=== PATIENT | female | born 1985 | race Caucasian/White ===

== ENCOUNTER 2017-04-19 17:28 | Emergency (ER) | payer OTHER ==
[2017-04-19 18:46] LABS: Hematocrit 26 % (35-47); Hemoglobin 7.2 g/dl (12.0-16.0); Mean Corpuscular HGB Conc 28 g/dl (31-36); Mean Corpuscular Hemoglobin 16 pg (27-31); Mean Corpuscular Volume 58 fL (80-97); Mean Platelet Volume 9 um3 (7.4-10.4); Red Blood Count 4.42 10^6/ul (4.0-5.4); Red Cell Distribution Width 24 % (10.5-15); White Blood Count 5.7 10^3/ul (3.5-10.8)
[2017-04-19 18:58] LABS: Comments Flag Yes
[2017-04-19 19:06] LABS: Anion Gap 5 mmol/L (2-11); BUN/Creatinine Ratio 8.6 (8-20); Blood Urea Nitrogen 6 mg/dL (6-24); CO2 Carbon Dioxide 27 mmol/L (22-32); Calcium 9.5 mg/dL (8.6-10.3); Chloride 104 mmol/L (101-111); EGFR African American 123.2 (>60); EGFR Non-African American 95.8 (>60); Glucose 95 mg/dL (70-100); Potassium 3.9 mmol/L (3.5-5.0); Sodium 136 mmol/L (133-145)
[2017-04-19 19:16] LABS: Iron < 15 ug/dL (50-212)
[2017-04-19 19:36] LABS: Ferritin < 10.0 ng/mL (11-307)
--- NOTE | 2017-04-19 20:21 | ED ---
Dizziness - HPI Summary HPI Summary: 32 y/o female with h/o blood transfusion for anemia in early , unknown source, with no complaints/ anemia. Recently after field study in [place] with increased stress, poor eating habits, no supplementation (pt vegetarian diet, + fish, + eggs) noted dizziness worse with standing, rising from sitting, told she was pale, "looked bad". Was seen at [place] sunday- stool neg for blood, referral to hemonc at [facility]- had appt sunday which was cancelled, rescheduled for end april, patient came to ER as symptoms continue and does not feel can make it to end april appt. started iron supplementation sunday - History Of Current Complaint Chief Complaint: EDGeneral Stated Complaint: DIZZY/WEAKNESS Time Seen by Provider: 04/19/17 19:26 Hx Obtained From: Patient Onset/Duration: Still Present Timing: Constant Severity Initially: Moderate Severity Currently: Moderate Character: Lightheaded, Weak, Dizzy - worse with standing, rising Aggravating Factor(s): Position Change, Supine To Erect Alleviating Factor(s): Rest, Lying Down Associated Signs And Symptoms: Positive: SOB - h/o asthma, unsure related? - Allergies/Home Medications Allergies/Adverse Reactions: Allergies Allergy/AdvReac Type Severity Reaction Status Date / Time Environmental Allergies Allergy Congestion Uncoded 05/21/14 12:26 PMH/Surg Hx/FS Hx/Imm Hx Previously Healthy: Yes - h/o anemia in 20s Endocrine/Hematology History: Denies: Hx Diabetes, Hx Thyroid Disease Cardiovascular History: Denies: Hx Hypertension Respiratory History: Reports: Hx Asthma - and allergies Denies: Hx Chronic Obstructive Pulmonary Disease (COPD) GI History: Denies: Hx Ulcer Infectious Disease History: Denies: Hx Clostridium Difficile, Hx Hepatitis, Hx Human Immunodeficiency Virus (HIV), Hx of Known/Suspected MRSA, History Other Infectious Disease, Traveled Outside the [place] in Last 30 Days - Social History Alcohol Use: Occasionally Substance Use Type: Reports: None Smoking Status (MU): Never Smoked Tobacco Type: Cigarettes Amount Used/How Often: once a week Have You Smoked in the Last Year: Yes Review of Systems Positive: Fatigue Eyes: Negative ENT: Negative Cardiovascular: Negative Positive: Shortness Of Breath Gastrointestinal: Negative Genitourinary: Negative Musculoskeletal: Negative Skin: Negative Positive: Weakness Psychological: Normal All Other Systems Reviewed And Are Negative: Yes Physical Exam Triage Information Reviewed: Yes Vital Signs On Initial Exam: Initial Vitals Temp Pulse Resp BP Pulse Ox 97.8 F 54 20 122/75 99 04/19/17 17:29 04/19/17 17:29 04/19/17 17:29 04/19/17 17:29 04/19/17 17:29 Vital Signs Reviewed: Yes Appearance: Positive: Well-Appearing, No Pain Distress, Well-Nourished Skin: Positive: Warm, Other - skin pale, conjunctiva pale Eyes: Positive: EOMI Neck: Positive: Supple, Nontender Respiratory/Lung Sounds: Positive: Clear to Auscultation, Breath Sounds Present Cardiovascular: Positive: Normal, RRR, Pulses are Symmetrical in both Upper and Lower Extremities Abdomen Description: Positive: Nontender, No Organomegaly Musculoskeletal: Positive: Normal, Strength/ROM Intact Neurological: Positive: Normal, Sensory/Motor Intact, Alert, Oriented to Person Place, Time, Normal Gait, Facial Symmetry, Speech Normal Psychiatric: Positive: Normal AVPU Assessment: Alert Diagnostics - Vital Signs Vital Signs Temp Pulse Resp BP Pulse Ox 04/19/17 19:00 97.3 F 66 20 119/68 100 04/19/17 17:29 97.8 F 54 20 122/75 99 - Laboratory Lab Results: Lab Results 04/19/17 04/19/17 04/19/17 Range/Units 18:37 18:37 18:37 WBC 5.7 (3.5-10.8) 10^3/ul RBC 4.42 (4.0-5.4) 10^6/ul Hgb 7.2 L (12.0-16.0) g/dl Hct 26 L (35-47) % MCV 58 L (80-97) fL MCH 16 L (27-31) pg MCHC 28 L (31-36) g/dl RDW 24 H (10.5-15) % Plt Count 356 (150-450) 10^3/ul MPV 9 (7.4-10.4) um3 Hem Pathologist Commnt Pending Sodium 136 (133-145) mmol/L Potassium 3.9 (3.5-5.0) mmol/L Chloride 104 (101-111) mmol/L Carbon Dioxide 27 (22-32) mmol/L Anion Gap 5 (2-11) mmol/L BUN 6 (6-24) mg/dL Creatinine 0.70 (0.51-0.95) mg/dL Est GFR ( Amer) 123.2 (>60) Est GFR (Non-Af Amer) 95.8 (>60) BUN/Creatinine Ratio 8.6 (8-20) Glucose 95 (70-100) mg/dL Calcium 9.5 (8.6-10.3) mg/dL Iron < 15 L (50-212) ug/dL Ferritin < 10.0 L (11-307) ng/mL Blood Type A Positive Antibody Screen Negative Result Diagrams: 04/19/17 18:37 04/19/17 18:37 Lab Statement: Any lab studies that have been ordered have been reviewed, and results considered in the medical decision making process. Dizzy Course/Dx - Course Course Of Treatment: Dr. Mclean called, discussed care, did not recommend transfusion, will follow up with patient in clinic tomorrow. Patient told, agreeed with plan. - Diagnoses Differential Diagnosis/HQI/PQRI: Anxiety, Coronary Artery Disease, Dysrhythmia, GI Bleed, Hypovolemia Provider Diagnoses: Anemia Discharge - Discharge Plan Condition: Stable Disposition: HOME Patient Education Materials: Iron Rich Diet (ED), Anemia (ED) Referrals: Ebony Rao MD [Primary Care Provider] - Additional Instructions: - Discussed with DR. Mclean- Please go to his office tomorrow morning at 8AM for follow up - Use caution with standing
[2017-04-19 21:09] LABS: Vitamin B12 393 pg/mL (180-914)
[2017-04-20 04:20] VITALS: BP 112/71
== END 2017-04-19 21:17 | disposition home or self-care (01) ==
LOC: ED 17:28
DX: D64.9 Anemia, unspecified (principal); R42 Dizziness and giddiness; R53.1 Weakness; R06.02 Shortness of breath; R53.83 Other fatigue
CPT/HCPCS: 36415; 80048; 82607; 82728; 83540; 85027; 85060; 86850; 86900; 86901; 99282

== ENCOUNTER 2018-04-03 11:11 | Day surgery (SDC) | payer OTHER ==
[~2018-04-03 11:11] MED LIST: Buffered Lidocaine 0.9% SYRIN* 5 ML/SYR SYRINGE INTRADERM ONE; Dexamethasone TAB* 4 MG PO ONE; DiMENhydriNATE IV* 50 MG/ML VIAL IV PUSH PRN; Famotidine IV* 10 MG/ML 2 ML (20 mg) IV ONE; Morphine INJ* 2 MG/ML 1 ML CARPUJECT IV PRN; Naloxone* 0.4 MG/ML 1 ML VIAL IV PRN; Ondansetron INJ* 2 MG/ML VIAL ONE; PROCHLORPERAZINE INJ 5 MG/ML 2 ML VIAL IV PRN; Scopolamine 1.5 mg* PATCH TRANSDERM PRN; fentaNYL* 50 MCG/ML 2 ML VIAL (100 MCG VIAL) IV PRN; oxyCODONE/Acetamin 5/325 MG* TAB PO PRN
[2018-04-03] MEDS ORDERED: Famotidine IV* 10 MG/ML 2 ML (20 mg) ONE (11:52)
[2018-04-03] MEDS ORDERED: Buffered Lidocaine 0.9% SYRIN* 5 ML/SYR SYRINGE ONE (11:53)
[2018-04-03] MEDS ORDERED: Dexamethasone TAB* 4 MG ONE (11:53)
[2018-04-03] MEDS ORDERED: Ondansetron ODT TAB* 4 MG ONE (11:53)
[2018-04-03] MEDS ORDERED: fentaNYL* 50 MCG/ML 2 ML VIAL (100 MCG VIAL) ONE (15:28)
[2018-04-03] MEDS ORDERED: Midazolam* 1 MG/ML 5 ML VIAL (5 MG) ONE (15:28)
[2018-04-03] MEDS ORDERED: Lidocaine 4% TOPICAL* 50 ML TOP.SOLN ONE (15:37)
[2018-04-03] MEDS ORDERED: Oxymetazoline 0.05% NASAL SPR* 15 ML BTL ONE (15:37)
[2018-04-03] MEDS ORDERED: Lidocain 1% EPI 1:100,000 * 30 ML MDV ONE ×2 (15:37→16:20)
[2018-04-03] MEDS ORDERED: hydrALAZINE IV* 20 MG/ML VIAL IV SLOW PU ONE (15:39)
[2018-04-03] MEDS ORDERED: PROCHLORPERAZINE INJ 5 MG/ML 2 ML VIAL ONE (15:59)
[2018-04-03] MEDS ORDERED: Propofol* 10 MG/ML 20 ML BTL IV PUSH ONE (15:59)
[2018-04-03] MEDS ORDERED: Lidocaine 2% PF * 5 ML VIAL ONE (15:59)
[2018-04-03] MEDS ORDERED: Triamcinolone Acetonide* 40 MG/ML 1 ML VIAL ONE (16:58)
[2018-04-03] MEDS ORDERED: oxyCODONE/Acetamin 5/325 MG* TAB ONE (18:04)
[2018-04-03 18:52] VITALS: BP 136/94
--- NOTE | 2018-04-04 05:36 | OP ---
DATE OF OPERATION: 04/03/18 - SDS DATE OF : 81 SURGEON: Talat Limon MD PRE-OP DIAGNOSES: Chronic pansinusitis, maxillary, ethmoidal, sphenoidal, and nasal polyposis. POST-OP DIAGNOSES: Chronic pansinusitis, maxillary, ethmoidal, sphenoidal, and nasal polyposis. OPERATIVE PROCEDURE: Bilateral endoscopic sinus surgery with maxillary antrostomy with debridement of polyps, anterior and posterior ethmoidectomy, and sphenoidotomies under general laryngeal mask anesthesia. I used the image- guided system as well. COMPLICATIONS: None. DISPOSITION: Good. SPECIMENS: Left and right sinus contents and polyps. DESCRIPTION OF PROCEDURE: The patient was taken to the operating room, placed in the supine position on the operating room table, maintained with laryngeal mask airway anesthesia. She was turned and draped for the surgery and the nose was packed with cottonoids impregnated with oxymetazoline and 4% lidocaine. She was registered to the image-guided system and those instruments were used to verify placement of the instruments and surgery to confirm sinus location. The surgery was done the same bilaterally, systematically, injecting the polyps , middle turbinates, lateral arellano, as I got further back the ethmoid bulla. Deriding the polyps with the Jenniferley debrider using a sickle knife to take down the anterior aspect of the uncinate process, grasped and removing it, widening the ostium with the backbiters and the debrider, pulling polyps out at the maxillary sinuses, entering the anterior ethmoid bulla into the posterior ethmoid and then in through the ostium of the sphenoid sinus. I debriding polyps and open up the sinuses. I did not enter the frontals, but I pulled polyps out of the nasofrontal duct. MeroGel was placed bilaterally. The patient tolerated this well, no complications, transferred to the recovery room in stable condition. [id number]/[facility] #: [id number] KAY
[2018-04-06] MEDS ORDERED: Scopolamine PATCH Remove* 1 NOTE MISC PATCH OFF ONE (05:52)
== END 2018-04-03 18:59 | disposition home or self-care (01) ==
LOC: OR 11:11
PROVIDERS: ATTEND Otolaryngology
DX: J32.4 Chronic pansinusitis (principal); J45.40 Moderate persistent asthma, uncomplicated
CPT/HCPCS: 81025; 88305; A9270-GY; J0780; J2250; J2704; J3010; J3301; J8540

== ENCOUNTER 2018-05-07 22:50 | Emergency (ER) | payer OTHER ==
--- OUTSIDE RECORDS SUMMARY | 2018-05-07 23:26 | XMS REPORT ---
:1985 External Reference #:[id number] Author Organization [facility] Address [address] [place] [address] Phone [phone] Care Team Providers Name Role Phone Ebony Madden M.D. Primary Care Physician Unavailable Payers Type Date Identification Numbers Payment Provider Subscriber Commercial Effective: Policy Number: [id number] [facility] Anita Caldwell 2015 Group Number: [id number] [address] Group Name: [place] [address] PayID: [id number] [place] [address] Expires: 2015 Policy Number: [facility] Anita Caldwell [id number] Healthcare Group Number: [id number] [address] PayID: [id number] [place] [address] Problems Date Description Provider Status Onset: 04/08/2018 Uncomplicated moderate persistent TERESA Blancas-C Active asthma Onset: 09/08/2016 Uncomplicated moderate persistent Pepe Calderon M.D. Active asthma Onset: 09/08/2016 Body mass index (BMI) 21.0-21.9, Pepe Calderon M.D. Active adult Onset: 09/08/2016 Allergic rhinitis due to animals Pepe Calderon M.D. Active Onset: 09/08/2016 Immunization Pepe Calderon M.D. Active Onset: 08/19/2014 Acute maxillary sinusitis BERTHA Batista Active Onset: 12/29/2013 Mucosanguinous chronic otitis media Pepe Calderon M.D. Active Onset: 08/26/2012 Extrinsic asthma without status Pepe Calderon M.D. Active asthmaticus Onset: 08/26/2012 Allergic rhinitis Pepe Calderon M.D. Active Family History Date Family Member(s) Problem(s) Comments General Asthma General Hypertension pat GF andGM General Heart Disease pat GM First Brother Asthma Social History Type Date Description Comments Marital Status Legal Status: Lives With Spouse Home Environment Negative For 20+Year Old Home, 2 Years In Current Home Home Environment Down Comforter Home Environment Mattress is not encased in an allergy proof case Home Environment Regular Mattress Home Environment Pillows are not encased in an allergy proof case Home Environment Does not use a dehumidifier Home Environment Uses baseboard heating Home Environment Uses natural gas heating Home Environment [facility] Home Environment Water Source: 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 Home Environment Does not have an air conditioner Home Environment Stairs are not present Home Environment There is no basement Home Environment Mattress is 5 years old Home Environment Pillows are polyester Home Environment There are no draperies in the home Home Environment The home is not alfredo Home Environment The floors are tile Smoke-Free Home is smoke-free Smoke-Free Work is smoke-free Pets None Occupation [employer] ETOH Use Currently consumes alcohol 5 drinks per week Smoking Patient has never smoked Recreational Drug Use Former Drug User Allergies, Adverse Reactions, Alerts Date Description Reaction Status Severity Comments 12/14/2011 NKDA active Medications Medication Date Status Form Strength Qnty SIG Indications Ordering Provider Mometasone 03/16 Active Suspension 50mcg/Act 17gm Use 1-2 Rabia Furoate /2015 Sprays In [place]uss[place], Each WELT SLASHER-C Nostril Daily Advair HFA 05/21 Active Aerosol 115-21mcg 1unit take 2 J45.40 Pepe /2014 /Act s puffs Calderon, twice M.D. daily, use the chamber. Levocetirizine 05/21 Active Tablets 5mg 30tab Take 1 J45.40 Pepe Dihydrochloride /2014 s Tablet By Calderon, Mouth AT M.D. Bedtime Montelukast 09/22 Active Tablets 10mg 90tab Take 1 Rabia Sodium /2012 s Tablet By Dussing, Mouth WELT SLASHER-C Every Evening Ventolin HFA Active Aerosol 108(90Bas 8gm 2 puffs Pepe /0000 e) every 4 Calderon, mcg/Act hours as M.D. needed for shortness of breath, cough, wheezing and/or 15 min. prior to exercise Visine-A Active Solution 0.025-0.3 one drop Unknown /0000 % each eye as needed 4 x day. Medications Administered in Office Medication Date Status Form Strength Qnty SIG Indications Ordering Provider Injection 05/28/20 Administered Injection Allergy 15 Injection Injection 05/21/20 Administered Injection Allergy 15 Injection Injection 05/14/20 Administered Injection Allergy 15 Injection Injection 05/07/20 Administered Injection Allergy 15 Injection Injection 03/24/20 Administered Injection Allergy 15 Injection Injection 03/19/20 Administered Injection Allergy 15 Injection Injection 03/12/20 Administered Injection Allergy 15 Injection Injection 02/18/20 Administered Injection Allergy 15 Injection Injection 02/06/20 Administered Injection Allergy 15 Injection Injection 01/30/20 Administered Injection Allergy 15 Injection Injection 01/02/20 Administered Injection Allergy 15 Injection Injection 12/24/19 Administered Injection Allergy 15 Injection Injection 12/17/19 Administered Injection Allergy 15 Injection Injection 12/10/19 Administered Injection Allergy 15 Injection Injection 12/02/19 Administered Injection Allergy 15 Injection Injection 10/16/19 Administered Injection Allergy 15 Injection Injection 09/18/20 Administered Injection Allergy 14 Injection Injection 08/05/20 Administered Injection Allergy 14 Injection Injection 06/26/20 Administered Injection Milton 14 Rick, M.D. Injection 06/03/20 Administered Injection Allergy 14 Injection Injection 04/22/20 Administered Injection Allergy 14 Injection Injection 04/06/20 Administered Injection Allergy 14 Injection Injection 03/30/20 Administered Injection Allergy 14 Injection Injection 03/16/20 Administered Injection Allergy 14 Injection Injection 02/28/20 Administered Injection Allergy 14 Injection Injection 02/14/20 Administered Injection Allergy 14 Injection Injection 01/20/20 Administered Injection Allergy 14 Injection Injection 01/08/20 Administered Injection Allergy 14 Injection Injection 12/11/19 Administered Injection Allergy 14 Injection Injection 11/28/19 Administered Injection Allergy 14 Injection Injection 11/21/19 Administered Injection Allergy 14 Injection Injection 09/22/20 Administered Injection Allergy 13 Injection Injection 09/08/20 Administered Injection Allergy 13 Injection Injection 08/01/20 Administered Injection Allergy 13 Injection Injection 07/18/20 Administered Injection Allergy 13 Injection Injection 07/07/20 Administered Injection Allergy 13 Injection Injection 06/20/20 Administered Injection Allergy 13 Injection Injection 05/19/20 Administered Injection Allergy 13 Injection Injection 05/02/20 Administered Injection Allergy 13 Injection Injection 04/18/20 Administered Injection Pepe Calderon, 13 M.D. Injection 04/18/20 Administered Injection Allergy 13 Injection Injection 03/28/20 Administered Injection Allergy 13 Injection Injection 03/17/20 Administered Injection Allergy 13 Injection Injection 03/07/20 Administered Injection Allergy 13 Injection Injection 02/22/20 Administered Injection Allergy 13 Injection Injection 02/15/20 Administered Injection Allergy 13 Injection Injection 02/08/20 Administered Injection Allergy 13 Injection Injection 02/01/20 Administered Injection Allergy 13 Injection Injection 01/25/20 Administered Injection Allergy 13 Injection Injection 01/18/20 Administered Injection Allergy 13 Injection Injection 12/21/19 Administered Injection Pepe Calderon, 13 M.D. Injection 12/14/19 Administered Injection Pepe Calderon, 13 M.D. Injection 12/07/19 Administered Injection Pepe Calderon, 13 M.D. Injection 11/22/19 Administered Injection Pepe Calderon, 13 M.D. Injection 11/15/19 Administered Injection Pepe Calderon, 13 M.D. Injection 11/08/19 Administered Injection Pepe Calderon, 13 M.D. Injection 11/01/19 Administered Injection Pepe Calderon, 13 M.D. Injection 10/14/19 Administered Injection Pepe Calderon, 13 M.D. Injection 09/27/20 Administered Injection Pepe Calderon, 12 M.D. Injection 09/23/20 Administered Injection Pepe Calderon, 12 M.D. Injection 09/13/20 Administered Injection Pepe Calderon, 12 M.D. Injection 09/11/20 Administered Injection Pepe Calderon, 12 M.D. Injection 09/04/20 Administered Injection Pepe Calderon, 12 M.D. Injection 08/23/20 Administered Injection Pepe Calderon, 12 M.D. Injection 08/16/20 Administered Injection Pepe Calderon, 12 M.D. Injection 08/09/20 Administered Injection Pepe Calderon, 12 M.D. Injection 08/02/20 Administered Injection Pepe Calderon, 12 M.D. Injection 07/26/20 Administered Injection Pepe Calderon, 12 M.D. Injection 07/19/20 Administered Injection Pepe Calderon, 12 M.D. Injection 07/12/20 Administered Injection Pepe Calderon, 12 M.D. Injection 07/05/20 Administered Injection Pepe Calderon, 12 M.D. Injection 06/28/20 Administered Injection Pepe Calderon, 12 M.D. Injection 06/21/20 Administered Injection Pepe Calderon, 12 M.D. Injection 06/14/20 Administered Injection Pepe Calderon, 12 M.D. Immunizations CPT Code Status Date Vaccine Lot # [id number] Given 07/08/2014 Influenza Vaccine 42196 Given Unknown Influenza Vaccine Vital Signs Date Vital Result Comment 04/08/2018 Height 69 inches 5'9" Weight 132.00 lb Weight in kg's 59.875 Respiratory Rate 16 /min Heart Rate 63 /min O2 % BldC Oximetry 98 % BP Systolic 108 mmHg BP Diastolic 64 mmHg Asthma Control Test 24 BMI (Body Mass Index) 19.5 kg/m2 09/08/2016 Height 69 inches 5'9" Weight 147.00 lb Weight in kg's 66.679 Respiratory Rate 16 /min Heart Rate 68 /min O2 % BldC Oximetry 99 % BP Systolic 115 mmHg BP Diastolic 64 mmHg Asthma Control Test 19 BMI (Body Mass Index) 21.7 kg/m2 05/17/2016 Height 69 inches 5'9" Weight 140.00 lb Weight in kg's 63.504 Respiratory Rate 16 /min Heart Rate 76 /min O2 % BldC Oximetry 98 % BP Systolic 110 mmHg BP Diastolic 62 mmHg Asthma Control Test 24 BMI (Body Mass Index) 20.7 kg/m2 03/16/2016 Height 69 inches 5'9" Weight 145.00 lb Weight in kg's 65.772 Respiratory Rate 20 /min Heart Rate 75 /min O2 % BldC Oximetry 99 % BP Systolic 121 mmHg BP Diastolic 76 mmHg Asthma Control Test 9 BMI (Body Mass Index) 21.4 kg/m2 05/21/2015 Height 69 inches 5'9" Weight 135.00 lb Weight in kg's 61.236 Respiratory Rate 18 /min Heart Rate 76 /min O2 % BldC Oximetry 97 % BP Systolic 117 mmHg BP Diastolic 64 mmHg Asthma Control Test 24 BMI (Body Mass Index) 19.9 kg/m2 05/19/2015 Height 69 inches 5'9" Weight 135.00 lb Weight in kg's 61.236 Respiratory Rate 18 /min Heart Rate 62 /min Body Temperature 98.0 F O2 % BldC Oximetry 99 % BP Systolic 119 mmHg BP Diastolic 70 mmHg Asthma Control Test 24 BMI (Body Mass Index) 19.9 kg/m2 08/28/2014 Height 69 inches 5'9" Weight 135.00 lb Weight in kg's 61.236 Respiratory Rate 18 /min Heart Rate 78 /min O2 % BldC Oximetry 97 % BP Systolic 116 mmHg BP Diastolic 72 mmHg Asthma Control Test 21 BMI (Body Mass Index) 19.9 kg/m2 08/19/2014 Height 69 inches 5'9" Weight 135.00 lb Weight in kg's 61.236 Respiratory Rate 16 /min Heart Rate 66 /min O2 % BldC Oximetry 96 % BP Systolic 118 mmHg BP Diastolic 76 mmHg Asthma Control Test 15 BMI (Body Mass Index) 19.9 kg/m2 01/14/2014 Height 69 inches 5'9" Weight 136.00 lb Weight in kg's 61.690 Respiratory Rate 16 /min Heart Rate 79 /min Body Temperature 98.1 F O2 % BldC Oximetry 99 % BP Systolic 124 mmHg BP Diastolic 78 mmHg Asthma Control Test 24 BMI (Body Mass Index) 20.1 kg/m2 12/29/2013 Height 69 inches 5'9" Weight 135.00 lb Weight in kg's 61.236 Respiratory Rate 16 /min Heart Rate 71 /min Body Temperature 98.2 F O2 % BldC Oximetry 98 % BP Systolic 116 mmHg BP Diastolic 60 mmHg Asthma Control Test 22 BMI (Body Mass Index) 19.9 kg/m2 12/26/2013 Height 69 inches 5'9" Weight 135.00 lb Weight in kg's 61.236 Respiratory Rate 18 /min Heart Rate 74 /min Body Temperature 97.6 F O2 % BldC Oximetry 98 % BP Systolic 112 mmHg BP Diastolic 78 mmHg Asthma Control Test 22 BMI (Body Mass Index) 19.9 kg/m2 10/22/2013 Height 69 inches 5'9" Weight 130.00 lb patient verbalized weight Weight in kg's 58.968 Respiratory Rate 14 /min Heart Rate 70 /min O2 % BldC Oximetry 98 % BP Systolic 124 mmHg BP Diastolic 78 mmHg BMI (Body Mass Index) 19.2 kg/m2 09/22/2013 Height 69 inches 5'9" Weight 130.00 lb Weight in kg's 58.968 Respiratory Rate 16 /min Heart Rate 63 /min O2 % BldC Oximetry 97 % BMI (Body Mass Index) 19.2 kg/m2 05/23/2013 Height 68 inches 5'8" Weight 143.00 lb Weight in kg's 64.865 Respiratory Rate 16 /min Heart Rate 61 /min O2 % BldC Oximetry 99 % BP Systolic 110 mmHg BP Diastolic 70 mmHg BMI (Body Mass Index) 21.7 kg/m2 04/18/2013 Height 70 inches 5'10" Weight 144.00 lb Weight in kg's 65.318 Respiratory Rate 16 /min Heart Rate 69 /min O2 % BldC Oximetry 99 % BP Systolic 128 mmHg BP Diastolic 72 mmHg BMI (Body Mass Index) 20.7 kg/m2 04/04/2013 Height 70 inches 5'10" Weight 144.00 lb Weight in kg's 65.318 Respiratory Rate 16 /min Heart Rate 56 /min Body Temperature 98.3 F O2 % BldC Oximetry 99 % BP Systolic 122 mmHg BP Diastolic 80 mmHg BMI (Body Mass Index) 20.7 kg/m2 03/17/2013 Height 70 inches 5'10" Weight 145.00 lb Weight in kg's 65.772 Heart Rate 57 /min O2 % BldC Oximetry 94 % BP Systolic 104 mmHg BP Diastolic 74 mmHg BMI (Body Mass Index) 20.8 kg/m2 02/10/2013 Height 70 inches 5'10" Weight 142.00 lb Weight in kg's 64.411 Respiratory Rate 16 /min Heart Rate 53 /min BMI (Body Mass Index) 20.4 kg/m2 12/20/2012 Height 70 inches 5'10" Weight 157.00 lb Weight in kg's 71.215 Respiratory Rate 16 /min Heart Rate 58 /min O2 % BldC Oximetry 99 % BMI (Body Mass Index) 22.5 kg/m2 Results Description No Information Procedures Date CPT Code Description Status 09/08/2016 54137 Pre PFT Completed 05/19/2016 80786 Extract 1-10 Completed 05/17/2016 81148 Pre PFT Completed 03/16/2016 87305 Pre PFT Completed 05/28/2015 66051 Injection Completed 05/21/2015 07142 Extract 1-10 Completed 05/21/2015 55649 Injection Completed 05/21/2015 69218 Pre PFT Completed 05/14/2015 53776 Injection Completed 05/07/2015 60249 Injection Completed 03/24/2015 57388 Injection Completed 03/19/2015 15983 Injection Completed 03/12/2015 37531 Injection Completed 02/17/2015 24845 Injection Completed 02/05/2015 56828 Injection Completed 01/29/2015 55026 Injection Completed 01/01/2015 49871 Injection Completed 12/23/2014 37233 Extract 1-10 Completed 12/23/2014 96274 Injection Completed 12/16/2014 26679 Injection Completed 12/09/2014 14797 Injection Completed 12/02/2014 51904 Injection Completed 10/16/2014 48301 Injection Completed 09/18/2014 89563 Injection Completed 08/19/2014 97060 Pulmonary Function Test Completed 08/05/2014 77964 Injection Completed 06/26/2014 18563 Injection Completed 06/03/2014 54390 Injection Completed 04/22/2014 90731 Injection Completed 04/06/2014 89231 Injection Completed 03/30/2014 42768 Extract 1-10 Completed 03/30/2014 87910 Injection Completed 03/16/2014 00911 Injection Completed 02/27/2014 97687 Injection Completed 02/13/2014 28536 Injection Completed 01/19/2014 38455 Injection Completed 01/07/2014 80553 Injection Completed 12/10/2013 86108 Injection Completed 11/28/2013 92666 Injection Completed 11/21/2013 11786 Injection Completed 09/22/2013 95981 Pre PFT Completed 09/22/2013 51523 Ippb Completed 09/22/2013 52954 Oxygen Level - Pulse Oximiter Completed 09/22/2013 28236 Injection Completed 09/08/2013 56861 Extract 1-10 Completed 09/08/2013 95212 Injection Completed 08/01/2013 08900 Injection Completed 07/18/2013 74021 Injection Completed 07/07/2013 69129 Injection Completed 06/20/2013 90864 Injection Completed 05/23/2013 81537 Oxygen Level - Pulse Oximiter Completed 05/19/2013 47405 Injection Completed 05/02/2013 52035 Injection Completed 04/18/2013 31471 Oxygen Level - Pulse Oximiter Completed 04/18/2013 60481 Injection Completed 04/18/2013 79410 Injection Completed 04/04/2013 41579 Oxygen Level - Pulse Oximiter Completed 04/04/2013 66161 Ippb Completed 03/28/2013 60200 Injection Completed 03/17/2013 67915 Injection Completed 03/17/2013 20876 Pre PFT Completed 03/07/2013 78349 Extract 1-10 Completed 03/07/2013 65196 Injection Completed 02/21/2013 47318 Injection Completed 02/14/2013 76733 Injection Completed 02/10/2013 95707 Oxygen Level - Pulse Oximiter Completed 02/07/2013 38915 Injection Completed 01/31/2013 24797 Injection Completed 01/24/2013 88180 Injection Completed 01/17/2013 36242 Injection Completed 12/20/2012 16726 Injection Completed 12/20/2012 79465 Oxygen Level - Pulse Oximiter Completed 12/20/2012 69080 Pulmonary Function Test Completed 12/13/2012 18209 Injection Completed 12/06/2012 19202 Injection Completed 11/22/2012 38487 Extract 1-10 Completed 11/22/2012 11809 Injection Completed 11/15/2012 36633 Injection Completed 11/08/2012 63407 Injection Completed 11/01/2012 27162 Injection Completed 10/14/2012 98464 Injection Completed 09/27/2012 52739 Injection Completed 09/23/2012 54256 Injection Completed 09/13/2012 77897 Injection Completed 09/11/2012 97715 Injection Completed 09/04/2012 96869 Injection Completed 08/23/2012 55651 Extract 1-10 Completed 08/23/2012 11735 Injection Completed 08/16/2012 95363 Injection Completed 08/09/2012 14811 Injection Completed 08/02/2012 47736 Injection Completed 07/26/2012 67716 Injection Completed 07/19/2012 58842 Injection Completed 07/12/2012 22079 Injection Completed 07/05/2012 21251 Injection Completed 06/28/2012 42731 Injection Completed 06/21/2012 12272 Injection Completed 06/14/2012 90612 Injection Completed 06/14/2012 68497 Oxygen Level - Pulse Oximiter Completed 06/14/2012 71196 Pulmonary Function Test Completed 06/12/2012 04917 Extract 1-10 Completed 03/11/2012 26861 Oxygen Level - Pulse Oximiter Completed 03/11/2012 24508 Pulmonary Function Test Completed 12/21/2011 65050 Skin Test Scratch # Of Units ____ Completed 12/14/2011 47848 Oxygen Level - Pulse Oximiter Completed 12/14/2011 47640 Pulmonary Function Test Completed Encounters Type Date Location Provider CPT E/M Dx Office Visit 04/08/2018 1:40p Gaurav Tseirdrshashank Torresritesh [facility] 02265 Z23 J45.40 J30.81 J30.1 J30.2 J30.89 Office Visit 09/08/2016 4:00p Gaurav Calderon M.D. 72127 J45.40 J30.81 Z23 Z68.21 Office Visit 05/17/2016 9:00a Stedmannash Ramirez [facility] 43181 Z68.20 Z23 J30.2 J30.1 J30.81 J45.40 Office Visit 03/16/2016 11:00a Gaurav Rabia Casas [facility] 84251 J45.40 J30.1 J30.89 Z23 Z68.21 Office Visit 05/21/2015 2:00p Gaurav Mckinnon, PH.D, [facility] 72010 493.00 477.0 477.8 V85.1 Office Visit 05/19/2015 2:40p Gaurav Mckinnon, PH.D, [facility] 59893 461.0 477.8 477.0 493.00 Office Visit 08/28/2014 2:20p Gaurav Ramirez [facility] 88229 461.0 493.92 Office Visit 08/19/2014 2:20p Stedman Sallie Ramirez [facility] 79871 477.8 461.0 493.92 Office Visit 01/14/2014 11:40a Gaurav Cueto [facility] 29552 477.0 493.00 477.8 Office Visit 12/29/2013 3:00p Gaurav Calderon M.D. 21547 381.29 Office Visit 12/26/2013 10:40a Gaurav Cueto [facility] 76512 487.1 477.0 477.8 493.00 Office Visit 10/22/2013 9:00a Gaurav Cueto [facility] 89879 477.0 493.02 477.8 Office Visit 09/22/2013 2:40p Stedman Judi Cueto [facility]- 13816 477.8 477.0 493.00 Office Visit 05/23/2013 3:40p Stedman Lolis Means M.D. 15024 477.0 477.8 493.00 Office Visit 04/18/2013 3:20p Stedman Sallie Harris James [facility] 50027 477.8 477.0 493.00 Office Visit 04/04/2013 11:20a Stedman Lolis Means M.D. 19150 493.00 493.92 477.0 477.8 Office Visit 03/17/2013 3:00p Stedmannash Cueto [facility] 19048 477.8 477.0 493.00 Office Visit 02/10/2013 11:40a Gaurav Cueto [facility] 92806 493.00 477.8 Office Visit 08/26/2012 11:40a Gaurav Calderon M.D. 75913 477.8 493.00 Office Visit 06/14/2012 3:19p Gaurav Calderon M.D. 98999 477.0 477.8 493.00 Office Visit 04/22/2012 4:40p Gaurav Calderon M.D. 29052 477.9 493.00 473.9 Office Visit 03/18/2012 4:20p Gaurav Calderon M.D. 66328 477.9 493.00 473.9 Office Visit 01/01/2012 4:20p Gaurav Calderon M.D. 67070 477.9 493.00 473.9 Office Visit 12/14/2011 1:20p [facility] Pepe Calderon M.D. 17226 477.9 493.00 473.9 493.90 Plan of Care Future Appointment(s):06/17/2018 4:20 pm - Pepe Calderon M.D. at [id number] - Eloin[place]ashank Stone, [facility] Encounter for ssqowuxhliyrM86.40 Moderate persistent asthma, uautcvfpzkxgiC45.81 Allergic rhinitis due to animal (cat) ( dog) hair and vdtzpfJ09.1 Allergic rhinitis due to lyvcqwU08.2 Other seasonal allergic gtgccetvV19.89 Other allergic rhinitisNew Labs:Ige TotalCBC Diff Man DiffFollow up:june or SundayRecommendations:Continue all medications as prescribed.Refrain from wearing perfumes/scented colognes while visitingour office. Continue the Advair 2 puffs twice a day Continue the levocetirizine Continue the montelukast 1 daily Continue the ventolin 2 puffs every 4 hours as needed for shortness of breath, wheezing, chest tightness. Monitor Albuterol use. If using more than 2x/week, please call the office as your asthma medications may need to be adjusted.
--- OUTSIDE RECORDS SUMMARY | 2018-05-07 23:26 | XMS REPORT ---
:1985 External Reference #:[id number] Author Organization [facility] Address [address] [place] [address] Phone [phone] Care Team Providers Name Role Phone Ebony Meng DR. Primary Care Physician Unavailable Payers Type Date Identification Numbers Payment Provider Subscriber Health Maintenance Policy Number: [id number] [facility] Anita Nelson (O) Admin Group Number: [id number] [facility] [id number] Group Name: [place] [address] PayID: [id number] Problems Date Description Provider Status Onset: 04/15/2018 Chronic pansinusitis Mitchell Wilkerson MD Active Onset: 04/15/2018 Polyp of nasal sinus Mitchell Wilkerson MD Active Onset: 12/18/2011 Disorder of nasal cavity Olivier Limon M.D. Active Onset: 12/18/2011 Asthma without status asthmaticus Olivier Limon M.D. Active Onset: 12/18/2011 Allergic rhinitis Olivier Limon M.D. Active Family History Date Family Member(s) Problem(s) Comments General Allergies General Asthma General Hearing Loss Social History Type Date Description Comments Occupation Research Report Analyst Cigarette Use Never Smoked Cigarettes Cigars Never Smoked Cigars Pipe Never Smoked A Pipe Smokeless Tobacco Never Used Smokeless Tobacco ETOH Use Currently Consumes Alcohol Smoking Patient has never smoked Allergies, Adverse Reactions, Alerts Date Description Reaction Status Severity Comments 03/13/2018 Sythetic Hemaglobin Transfusion active Medications Medication Date Status Form Strength Qnty SIG Indications Ordering Provider Budesonide 04/15/ Active Suspension 1mg/2ML 60ml 2ml in [place] [address] sinus Rock conte MD bottle to use as directed twic per day Mometasone 03/13/ Active Suspension 50mcg/Act 51gm 2 sprays J33.8 Olivier Hunter Furoate 2018 to each Strominge nostril Eddi rose daily Advair HFA 12/17/ Active Aerosol 115-21mcg/ 1units 2 puff bid 493.90 Olivier Hunter 2011 Act with Strominge spacer Eddi rose Spacer For 12/17/ Active 2units 493.90 Olivier Hunter Advair HFA 2011 Strominge And Albuterol Eddi rose Vitamin / Active Unknown 0000 Montelukast / Active Tablets 10mg Take 1 Unknown Sodium 0000 Tablet By Mouth Daily Amphetamine-D / Active Caps ER 24HR 5mg as needed Unknown extroamphet 0000 ER Benadryl / Active Capsules 25mg 1 or 2 Unknown Allergy 0000 every 6 hours as needed Xyzal Allergy / Active Tablets 5mg 1 by mouth Unknown 24HR 0000 every day Prednisone 03/13/ Hx 10mg 1Cours 40 mg for J32.4 Olivier Hunter 2018 - e 7 days, Strominge 03/13/ then 20 mg Eddi rose 2018 for days, then 10 mg for 4 days, then 5 mg for 4 days Prednisone 03/13/ Hx Tablets 10mg 60tabs 40 mg for J32.4 Olivier Hunter 2018 - 7 days, Strominge 04/15/ then 20 mg Eddi rose 2018 for 3 days, then 10 mg for 3 days, then 5 mg for 3 days with food Prednisone 00/00/ Hx Unknown - 2017 Sole / Hx Unknown Allergy 2017 Albuterol HFA 00/00/ Hx Unknown - 2017 Flovent HFA // Hx Unknown 2017 Veramyst / Hx Suspension 27.5mcg/Sp 1units ii puff Unknown 0000 - ray both sides 2017 Control /00/ Hx Unknown Pills - 2017 Adderall /00/ Hx Unknown - 2017 ALL Day / Hx Capsules 10mg Unknown Allergy - 2017 Vital Signs Date Vital Result Comment 04/15/2018 Weight 138.00 lb Weight in kg's 62.597 Height 69 inches 5'9" Height in cm's 175.3 cm BMI (Body Mass Index) 20.4 kg/m2 03/13/2018 BP Systolic 125 mmHg BP Diastolic 72 mmHg Heart Rate 57 /min Respiratory Rate 18 /min Weight 138.00 lb Weight in kg's 62.597 Height 69 inches 5'9" Height in cm's 175.3 cm BMI (Body Mass Index) 20.4 kg/m2 03/06/2018 Weight 139.00 lb Weight in kg's 63.050 Height 69 inches 5'9" Height in cm's 175.3 cm BMI (Body Mass Index) 20.5 kg/m2 12/18/2011 BP Systolic 122 mmHg BP Diastolic 84 mmHg Heart Rate 63 /min Respiratory Rate 16 /min Weight 140.00 lb Weight in kg's 63.504 Height 69 inches 5'9" Height in cm's 175.3 cm BMI (Body Mass Index) 20.7 kg/m2 Results Test Date Test Result H/L Range Note Laboratory test 04/03/2018 Surgical Pathology SEE RESULT BELOW 1 finding 1 SEE RESULT BELOW Name: ANITA SALMERON : [address]: Olivier Limon MD Acct: [id number] Unit: [id number] AGE: 33 Location: OR Re04/03/18 SEX: F Status: CASTRO NEGRETE SPEC: [id number] VI: 04/03/18- SUBM DR: Olivier Limon MD REQ: [id number] RECD: 04/03/18 STATUS: SOUT _ ORDERED: LEVEL 4/2 FINAL DIAGNOSIS 1. Right sinus, excision: -- Benign sinonasal mucosa with chronic sinusitis. 2. Left sinus, excision: -- Benign sinonasal mucosa with chronic sinusitis. PRE-OPERATIVE DIAGNOSIS Other polyp of sinus, chronic pansinusitis GROSS DESCRIPTION 1. The specimen is received in formalin labeled, Contents of Right Sinus, and consists of a 3.5 x 2.5 x 0.6 cm aggregate of translucent garcia irregular soft tissue fragments admixed with small amount of red-brown blood clot and scant possible bone. Veterinary Pharmacologist sections, one cassette. 2. The specimen is received in formalin labeled, Contents of Left Sinus, and consists of a 3.6 x 2.5 x 0.5 cm aggregate of translucent garcia irregular soft tissue fragments admixed with mucus and scant red-brown blood clot. Veterinary Pharmacologist sections, one cassette. Signed by and Reported on: Sylvia Graves MD 04/05/18 1319 END OF REPORT DEPARTMENT OF PATHOLOGY, [address] [place] [address] Karel Menard M.D. Director [facility] # [id number] Procedures Date CPT Code Description Status 03/06/2018 67363 Nasal Endoscopy, Diagnostic Completed 12/18/2011 54901 Nasal Endoscopy, Diagnostic Completed Encounters Type Date Location Provider CPT E/M Dx Office Visit 04/15/2018 9:15a [place] 10/08/07 [place] [address] J33.8 J32.4 Office Visit 03/13/2018 2:00p [place] 10/08/07 Olivier Limon, 24678 J33.8 M.Courtney J32.4 J45.40 Office Visit 03/06/2018 11:00a [place] 10/08/07 Olivier Limon, 28983 R43.0 MBrad J33.8 Office Visit 12/18/2011 10:30a [place] 10/08/07 Olivier Limon, 04785 477.9 M.Courtney 493.90 478.19 478.1-4 Plan of Care Future Appointment(s):05/27/2018 9:15 am - Mitchell Wilkerson MD at [place] - Mitchell Wilkerson MDJ33.8 Other polyp of fajdlA75.4 Chronic pansinusitisComments:The patient is going to start some saline nasal washes with budesonide, recheck back 6 weeks.
--- OUTSIDE RECORDS SUMMARY | 2018-05-07 23:26 | XMS REPORT ---
:1985 External Reference #:[id number] Author Organization [facility] Address [address] [place] [address] Phone [phone] Care Team Providers Name Role Phone Ebony Madden M.D. Primary Care Physician Unavailable Payers Type Date Identification Numbers Payment Provider Subscriber Commercial Effective: Policy Number: [id number] [facility] Anita Caldwell 2015 Group Number: [id number] [address] Group Name: [place] [address] PayID: [id number] [place] [employer] Expires: 2015 Policy Number: [facility] Anita Caldwell [id number] Healthcare Group Number: [id number] [address] PayID: [id number] [place] [address] Problems Date Description Provider Status Onset: 04/08/2018 [...] [place] [facility] Home Environment Water Source: [facility] Home Environment 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 Home Environment Does not have an air [...] Smoke-Free Work is smoke-free Pets None Occupation Science Consultant ETOH Use Currently consumes alcohol 5 drinks per week Smoking Patient has never smoked Recreational Drug Use Former Drug User Allergies, Adverse Reactions, Alerts Date Description Reaction Status Severity Comments 12/14/2011 NKDA active Medications Medication Date Status Form Strength Qnty SIG Indications Ordering Provider Mometasone 03/16 Active Suspension 50mcg/Act 17gm Use 1-2 Rabia Furoate /2015 Sprays In [place], Each [facility]OACH SETTER-C Nostril Daily Advair HFA 05/21 Active Aerosol 115-21mcg 1unit take 2 J45.40 [place] /2014 /Act s puffs Calderon, twice M.D. daily, use the chamber. Levocetirizine 05/21 Active Tablets 5mg 30tab Take 1 J45.40 [place] Dihydrochloride /2014 s Tablet By Calderon, Mouth AT M.D. Bedtime Montelukast 09/22 Active Tablets 10mg 90tab Take 1 Rabia Sodium /2012 s Tablet By [place], Mouth BROACH SETTER-C Every Evening Ventolin HFA Active Aerosol 108(90Bas [...] CPT Code Status Date Vaccine Lot # [id number] Given 07/08/2014 Influenza Vaccine 42666 Given Unknown Influenza Vaccine Vital Signs Date [...] Procedures Date CPT Code Description Status 09/08/2016 71242 Pre PFT Completed 05/19/2016 04608 Extract 1-10 Completed 05/17/2016 51821 Pre PFT Completed 03/16/2016 83655 Pre PFT Completed 05/28/2015 68831 Injection Completed 05/21/2015 35852 Extract 1-10 Completed 05/21/2015 54187 Injection Completed 05/21/2015 53441 Pre PFT Completed 05/14/2015 38795 Injection Completed 05/07/2015 08739 Injection Completed 03/24/2015 22459 Injection Completed 03/19/2015 70527 Injection Completed 03/12/2015 16395 Injection Completed 02/17/2015 23272 Injection Completed 02/05/2015 11099 Injection Completed 01/29/2015 09507 Injection Completed 01/01/2015 85571 Injection Completed 12/23/2014 86494 Extract 1-10 Completed 12/23/2014 94309 Injection Completed 12/16/2014 08786 Injection Completed 12/09/2014 90935 Injection Completed 12/02/2014 97278 Injection Completed 10/16/2014 69703 Injection Completed 09/18/2014 98976 Injection Completed 08/19/2014 91737 Pulmonary Function Test Completed 08/05/2014 02593 Injection Completed 06/26/2014 38285 Injection Completed 06/03/2014 60302 Injection Completed 04/22/2014 83285 Injection Completed 04/06/2014 56469 Injection Completed 03/30/2014 72394 Extract 1-10 Completed 03/30/2014 78989 Injection Completed 03/16/2014 65977 Injection Completed 02/27/2014 08211 Injection Completed 02/13/2014 32928 Injection Completed 01/19/2014 22585 Injection Completed 01/07/2014 47032 Injection Completed 12/10/2013 67441 Injection Completed 11/28/2013 47546 Injection Completed 11/21/2013 89716 Injection Completed 09/22/2013 53564 Pre PFT Completed 09/22/2013 10355 Ippb Completed 09/22/2013 86438 Oxygen Level - Pulse Oximiter Completed 09/22/2013 66409 Injection Completed 09/08/2013 91620 Extract 1-10 Completed 09/08/2013 49267 Injection Completed 08/01/2013 59626 Injection Completed 07/18/2013 63752 Injection Completed 07/07/2013 82697 Injection Completed 06/20/2013 03998 Injection Completed 05/23/2013 42074 Oxygen Level - Pulse Oximiter Completed 05/19/2013 58522 Injection Completed 05/02/2013 07162 Injection Completed 04/18/2013 73247 Oxygen Level - Pulse Oximiter Completed 04/18/2013 94773 Injection Completed 04/18/2013 96304 Injection Completed 04/04/2013 01166 Oxygen Level - Pulse Oximiter Completed 04/04/2013 02936 Ippb Completed 03/28/2013 48807 Injection Completed 03/17/2013 38682 Injection Completed 03/17/2013 71287 Pre PFT Completed 03/07/2013 85948 Extract 1-10 Completed 03/07/2013 86244 Injection Completed 02/21/2013 99700 Injection Completed 02/14/2013 78841 Injection Completed 02/10/2013 02406 Oxygen Level - Pulse Oximiter Completed 02/07/2013 17975 Injection Completed 01/31/2013 39125 Injection Completed 01/24/2013 72618 Injection Completed 01/17/2013 55432 Injection Completed 12/20/2012 02982 Injection Completed 12/20/2012 34336 Oxygen Level - Pulse Oximiter Completed 12/20/2012 72345 Pulmonary Function Test Completed 12/13/2012 42692 Injection Completed 12/06/2012 35295 Injection Completed 11/22/2012 37597 Extract 1-10 Completed 11/22/2012 71909 Injection Completed 11/15/2012 97450 Injection Completed 11/08/2012 58400 Injection Completed 11/01/2012 49444 Injection Completed 10/14/2012 71800 Injection Completed 09/27/2012 04964 Injection Completed 09/23/2012 07514 Injection Completed 09/13/2012 71556 Injection Completed 09/11/2012 34381 Injection Completed 09/04/2012 51576 Injection Completed 08/23/2012 28076 Extract 1-10 Completed 08/23/2012 88538 Injection Completed 08/16/2012 15122 Injection Completed 08/09/2012 68582 Injection Completed 08/02/2012 57048 Injection Completed 07/26/2012 23162 Injection Completed 07/19/2012 10105 Injection Completed 07/12/2012 38848 Injection Completed 07/05/2012 98704 Injection Completed 06/28/2012 66468 Injection Completed 06/21/2012 32762 Injection Completed 06/14/2012 13747 Injection Completed 06/14/2012 20727 Oxygen Level - Pulse Oximiter Completed 06/14/2012 58433 Pulmonary Function Test Completed 06/12/2012 89384 Extract 1-10 Completed 03/11/2012 75329 Oxygen Level - Pulse Oximiter Completed 03/11/2012 79742 Pulmonary Function Test Completed 12/21/2011 97028 Skin Test Scratch # Of Units ____ Completed 12/14/2011 37809 Oxygen Level - Pulse Oximiter Completed 12/14/2011 09914 Pulmonary Function Test Completed Encounters Type Date Location Provider CPT E/M Dx Office Visit 04/08/2018 1:40p Gaurav Tseirdrshashank Torresritesh [facility] [address]56 Z23 J45.40 J30.81 J30.1 J30.2 J30.89 Office Visit 09/08/2016 4:00p Gaurav Calderon M.D. 08237 J45.40 J30.81 Z23 Z68.21 Office Visit 05/17/2016 9:00a Huslianash Ramirez [facility] 05186 Z68.20 Z23 J30.2 J30.1 J30.81 J45.40 Office Visit 03/16/2016 11:00a Gaurav Rabia Casas [facility] 57289 J45.40 J30.1 J30.89 Z23 Z68.21 Office Visit 05/21/2015 2:00p Gaurav Mckinnon, PH.D, [facility]- 25650 493.00 477.0 477.8 V85.1 Office Visit 05/19/2015 2:40p Gaurav Mckinnon, PH.D, [facility] 87470 461.0 477.8 477.0 493.00 Office Visit 08/28/2014 2:20p Gaurav Ramirez [facility] 77144 461.0 493.92 Office Visit 08/19/2014 2:20p Huslia Sallie Ramirez [facility] 66516 477.8 461.0 493.92 Office Visit 01/14/2014 11:40a Gaurav Cueto [facility] 80102 477.0 493.00 477.8 Office Visit 12/29/2013 3:00p Gaurav Calderon M.D. 06250 381.29 Office Visit 12/26/2013 10:40a Gaurav Cueto [facility] 24290 487.1 477.0 477.8 493.00 Office Visit 10/22/2013 9:00a Gaurav Cueto [facility] 56780 477.0 493.02 477.8 Office Visit 09/22/2013 2:40p Huslia Judi Cueto [facility]- 27786 477.8 477.0 493.00 Office Visit 05/23/2013 3:40p Huslia Lolis Means M.D. 75259 477.0 477.8 493.00 Office Visit 04/18/2013 3:20p Huslia Sallie Harris [facility] 11878 477.8 477.0 493.00 Office Visit 04/04/2013 11:20a Huslia Lolis Means M.D. 45331 493.00 493.92 477.0 477.8 Office Visit 03/17/2013 3:00p Huslianash Cueto [facility] 95558 477.8 477.0 493.00 Office Visit 02/10/2013 11:40a Gaurav Cueto [facility] 86264 493.00 477.8 Office Visit 08/26/2012 11:40a Gaurav Calderon M.D. 79275 477.8 493.00 Office Visit 06/14/2012 3:19p Gaurav Calderon M.D. 89200 477.0 477.8 493.00 Office Visit 04/22/2012 4:40p Gaurav Calderon M.D. 29771 477.9 493.00 473.9 Office Visit 03/18/2012 4:20p Gaurav Calderon M.D. 99886 477.9 493.00 473.9 Office Visit 01/01/2012 4:20p Gaurav Calderon M.D. 74880 477.9 493.00 473.9 Office Visit 12/14/2011 1:20p [facility] Pepe Calderon M.D. 70876 477.9 493.00 473.9 493.90 Plan of Care Future Appointment(s):06/17/2018 4:20 pm - Pepe Calderon M.D. at [id number] - Eloinashashank Stone, BROACH SETTER-CZ23 Encounter for butluknbtihfK34.40 Moderate persistent asthma, gyqalyhvnqegtI68.81 Allergic rhinitis due to animal (cat) ( dog) hair and iugwjiA54.1 Allergic rhinitis due to fclungR88.2 Other seasonal allergic gfmuzvmzI58.89 Other allergic rhinitisNew Labs:Ige TotalCBC Diff Man [...]
[2018-05-07] MEDS ORDERED: Ibuprofen TAB* 600 MG PO ONE (23:54)
[2018-05-07] MEDS ORDERED: oxyCODONE/Acetamin 5/325 MG* TAB PO ONE (23:55)
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
[2018-05-08] MEDS ORDERED: oxyCODONE TAB* 5 MG TAB PO ONE (01:14)
[2018-05-08 02:02] VITALS: BP 112/52
--- NOTE | 2018-05-08 07:52 | RAD ---
HISTORY: fall/injury, right arm pain COMPARISONS: None VIEWS: 4, Frontal, lateral, and oblique views of the right elbow FINDINGS: BONE DENSITY: Normal. BONES: There is a transverse fracture through the proximal ulna with approximately 1.3 cm of displacement. JOINTS: There is no arthropathy. ALIGNMENT: There is no dislocation. SOFT TISSUES: There is associated soft tissue swelling. OTHER FINDINGS: None. IMPRESSION: DISPLACED FRACTURE OF THE PROXIMAL ULNA R1
== END 2018-05-08 02:01 | disposition home or self-care (01) ==
LOC: ED 22:50
DX: S52.021A Displaced fracture of olecranon process without intraarticular extension of right ulna, initial encounter for closed fracture (principal); S50.311A Abrasion of right elbow, initial encounter; V18.0XXA Pedal cycle driver injured in noncollision transport accident in nontraffic accident, initial encounter; Y93.55 Activity, bike riding; Y92.9 Unspecified place or not applicable; Z85.828 Personal history of other malignant neoplasm of skin
CPT/HCPCS: 99282; A9270-GY

== ENCOUNTER → 2018-05-10 12:43 | Day surgery (SDC) | payer OTHER ==
[~2018-05-10 12:43] MED LIST changes: +Bupivacaine 0.25% SDV PF* 10 ML VIAL INJ ONE; +Dexamethasone IV* 4 MG/ML 1 ML (4 MG) IV SLOW PU ONE; +Dexamethasone IV* 4 MG/ML 1 ML (4 MG) ONE; -Dexamethasone TAB* 4 MG PO ONE; +Famotidine IV* 10 MG/ML 2 ML (20 mg) ONE; +HYDROmorphone INJ* 0.5 MG/0.5 ML SYRINGE IV PRN; +HYDROmorphone INJ* 0.5 MG/0.5 ML SYRINGE ONE; +KETAMINE HCL* 50 MG/ML 10 ML VIAL ONE; +Ketorolac INJ* 30 MG/ML 1 ML VIAL ONE; +Midazolam* 1 MG/ML 2 ML VIAL (2 MG) ONE; -Morphine INJ* 2 MG/ML 1 ML CARPUJECT IV PRN; -PROCHLORPERAZINE INJ 5 MG/ML 2 ML VIAL IV PRN; +Rocuronium* 10 MG/ML VIAL ONE; -Scopolamine 1.5 mg* PATCH TRANSDERM PRN; +ceFAZolin 2 GM PREMIX (*) 2 GM/50 ML BAG IVPB ONE; -fentaNYL* 50 MCG/ML 2 ML VIAL (100 MCG VIAL) IV PRN; +fentaNYL* 50 MCG/ML 2 ML VIAL (100 MCG VIAL) ONE; +oxyCODONE TAB* 5 MG TAB ONE; -oxyCODONE/Acetamin 5/325 MG* TAB PO PRN
[2018-05-10] MEDS: fentaNYL* 50 MCG/ML 2 ML VIAL (100 MCG VIAL) IV PRN ×2 (16:54→17:31)
[2018-05-10 18:13] VITALS: BP 142/81
--- NOTE | 2018-05-11 08:29 | RAD ---
CPT II Codes: G9500 INDICATION: Traumatic right elbow fracture Fluoroscopic services provided for referring physician. 10.6 seconds of fluoroscopy time was used. One spot image demonstrates internal fixation of an olecranon fracture. IMPRESSION: Fluoroscopic services provided for referring physician for internal fixation of the right olecranon fracture.
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
== END | disposition home or self-care (01) ==
LOC: OR 12:43
PROVIDERS: ATTEND Orthopaedic Surgery
DX: S52.021A Displaced fracture of olecranon process without intraarticular extension of right ulna, initial encounter for closed fracture (principal); V18.0XXA Pedal cycle driver injured in noncollision transport accident in nontraffic accident, initial encounter; Y93.55 Activity, bike riding; Y92.9 Unspecified place or not applicable; J45.909 Unspecified asthma, uncomplicated; D64.9 Anemia, unspecified; F90.9 Attention-deficit hyperactivity disorder, unspecified type; Z85.828 Personal history of other malignant neoplasm of skin
CPT/HCPCS: 76001; 81025; A9270-GY; C1713; C1776; J0690; J1100; J1170; J1885; J2250; J2405; J3010; J3490